=== PATIENT | male | born 1990 | race Caucasian/White ===

== ENCOUNTER 2017-11-21 10:30 | Emergency (ER) | payer MEDICAID ==
[2017-11-21 11:01] VITALS: BP 148/85
[2017-11-21] MEDS ORDERED: Ketorolac INJ* 60 MG/2 ML VIAL IM ONE (12:09)
[2017-11-21] MEDS ORDERED: Amoxicillin PO (*) 500 MG CAP PO ONE (12:10)
--- NOTE | 2017-11-21 12:17 | UC ---
Cardiac HPI - HPI Summary HPI Summary: right lower dental pain began yesterday - History of Current Complaint Chief Complaint: UCDentalProblem Stated Complaint: DENTAL PAIN Time Seen by Provider: 11/21/17 12:02 Hx Obtained From: Patient Onset/Duration: Sudden Onset, Lasting Days - 1 Timing: Constant Initial Severity: Severe Current Severity: Severe Pain Intensity: 10 Alleviating Factor(s): OTC Meds - Allergy/Home Medications Allergies/Adverse Reactions: Allergies Allergy/AdvReac Type Severity Reaction Status Date / Time No Known Allergies Allergy Verified 11/21/17 11:01 Home Medications: Home Medications Acetaminophen [Tylenol] 2 tab PO Q6HR PRN 11/21/17 [History Confirmed 11/21/17] Buprenorphine/Naloxone SL TAB* [Suboxone 8-2 mg SL TAB*] 1 tab PO DAILY [History Confirmed 11/21/17] Diphenhydramine HCl [Benadryl Allergy 25 MG CAP] 50 mg PO BEDTIME PRN 11/21/17 [ History Confirmed 11/21/17] Gabapentin CAP(*) [Neurontin 300 CAP(*)] 300 mg PO TID 11/21/17 [History Confirmed 11/21/17] Ibuprofen [Advil] 400 mg PO Q6HR PRN 11/21/17 [History Confirmed 11/21/17] Melatonin 5 mg PO BEDTIME 11/21/17 [History Confirmed 11/21/17] Nicotine PATCH 14 MG/24 HR* 1 patch TOPICAL DAILY 11/21/17 [History Confirmed ] traZODone TAB* [Desyrel TAB*] 50 mg PO BEDTIME 11/21/17 [History Confirmed 11/21] PMH/Surg Hx/FS Hx/Imm Hx Previously Healthy: No - 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 Psychological History: Anxiety - Surgical History Surgical History: None - Family History Known Family History: Positive: None - Social History Occupation: Unemployed Lives: Assisted Alcohol Use: None Substance Use Type: Other Substance Use Comment - Amount & Last Used: in recovery on Suboxone Smoking Status (MU): Never Smoked Tobacco Review of Systems Constitutional: Negative Skin: Negative Eyes: Negative ENT: Dental Pain Respiratory: Negative Cardiovascular: Negative Gastrointestinal: Negative Genitourinary: Negative Motor: Negative Neurovascular: Negative Musculoskeletal: Negative Neurological: Negative Psychological: Negative Is Patient Immunocompromised?: No All Other Systems Reviewed And Are Negative: Yes Physical Exam Triage Information Reviewed: Yes Appearance: Well-Appearing, Well-Nourished, Pain Distress Vital Signs: Initial Vital Signs Temp 98.4 F 11/21/17 10:58 Pulse 84 11/21/17 10:58 Resp 16 11/21/17 10:58 BP 148/85 11/21/17 10:58 Pulse Ox 98 11/21/17 10:58 Vital Signs Reviewed: Yes Eye Exam: Normal Eyes: Positive: Conjunctiva Clear ENT Exam: Normal ENT: Positive: Normal ENT inspection, Hearing grossly normal, Pharynx normal, Dental tenderness, Uvula midline. Negative: Nasal congestion, Tonsillar swelling, Trismus, Muffled voice, Hoarse voice, Sinus tenderness Dental Exam: Normal Dental: Positive: Percussion Tenderness @ - multiple, Gross Decay/Caries @ - multiple, Dental Fracture @ - multiple, Abscess @ - right lower gum Neck exam: Normal Neck: Positive: Supple, Nontender Respiratory Exam: Normal Respiratory: Positive: Chest non-tender, No respiratory distress, No accessory muscle use Cardiovascular Exam: Normal Cardiovascular: Positive: RRR, Pulses Normal, Brisk Capillary Refill Musculoskeletal Exam: Normal Musculoskeletal: Positive: Strength Intact, ROM Intact, No Edema Neurological Exam: Normal Neurological: Positive: Alert, Muscle Tone Normal Psychological Exam: Normal Skin Exam: Normal - Assessment/Plan Course Of Treatment: Amoxicillin Ibuprofen 800, Pt refused Toradol, follow with dentist JAY - Clinical Impression Provider Diagnoses: dental abscess right lower jaw with multiple caries, elevated blood pressure due to current medical situation Discharge - Discharge Plan Condition: Stable Disposition: HOME Prescriptions: Amoxicillin PO (*) [Amoxicillin 500 MG CAP*] 500 mg PO TID #30 cap Ibuprofen TAB* [Motrin TAB* 800 MG] 800 mg PO Q8H PRN #40 tab PRN Reason: Pain Patient Education Materials: Dental Abscess (ED), Toothache (ED) Referrals: Finn Barillas JR PA [Primary Care Provider] - Additional Instructions: Call for a dental appointment JAY-
== END 2017-11-21 12:37 | disposition home or self-care (01) ==
LOC: UCEAST 10:30
DX: K04.7 Periapical abscess without sinus (principal); F41.9 Anxiety disorder, unspecified; K02.9 Dental caries, unspecified; R03.0 Elevated blood-pressure reading, without diagnosis of hypertension
CPT/HCPCS: 99212; A9270-GY; G0463; J1885

== ENCOUNTER 2020-07-15 20:35 | Inpatient (IN) ==
[2020-07-15 21:12] LABS: ABS Monocytes 0.5 10^3/ul (0-0.8); ABS Neutrophils 2.9 10^3/ul (1.5-7.7); Eosinophil % 0.8 %; Hematocrit 43 % (42-52); Hemoglobin 14.3 g/dL (14.0-18.0); Lymphocyte % 36.6 %; Mean Corpuscular HGB Conc 34 g/dL (31-36); Mean Corpuscular Hemoglobin 29 pg (27-31); Mean Corpuscular Volume 86 fL (80-94); Mean Platelet Volume 7.2 fL (7.4-10.4); Platelet Count 256 10^3/uL (150-450); Red Blood Count 4.95 10^6 /uL (4.18-5.48); Red Cell Distribution Width 14 % (10-15); White Blood Count 5.5 10^3/uL (3.5-10.8)
[2020-07-15 21:30] LABS: ALT 26 U/L (7-52); AST 22 U/L (13-39); Albumin 4.6 g/dL (3.2-5.2); Albumin/Globulin Ratio 1.6 (1-3); Alkaline Phosphatase 90 U/L (34-104); Anion Gap 6 mmol/L (2-11); BUN/Creatinine Ratio 16.5 (8-20); Blood Urea Nitrogen 14 mg/dL (6-24); CO2 Carbon Dioxide 30 mmol/L (22-32); Chloride 102 mmol/L (101-111); EGFR African American 127.2 (>60); EGFR Non-African American 105.1 (>60); Globulin 2.8 g/dL (2-4); Glucose 85 mg/dL (70-100); Potassium 3.3 mmol/L (3.5-5.0); Sodium 138 mmol/L (135-145); Total Protein 7.4 g/dL (6.4-8.9)
[2020-07-15 22:23] LABS: Acetaminophen < 15 mcg/mL; Alcohol, S < 10 mg/dL (<10); Salicylate < 2.50 mg/dL (<30)
[2020-07-15 22:38] LABS: TSH Ultra Thyroid Stim Horm 0.62 mcIU/mL (0.34-5.60)
[2020-07-15 23:48] LABS: Urine Appearance Cloudy; Urine Bilirubin Negative (Negative); Urine Blood Negative (Negative); Urine Color Yellow; Urine Glucose Negative (Negative); Urine Ketones Negative (Negative); Urine Nitrite Negative (Negative); Urine Protein Negative (Negative); Urine Specific Gravity 1.025 (1.010-1.030); Urine Urobilinogen Negative (Negative)
[2020-07-16 00:10] LABS: Urine Benzodiazepine Screen None Detected (None Detect); Urine Cannabinoids Screen Presumptive Positive (None Detect); Urine Opiates Screen None Detected (None Detect)
[2020-07-16] MEDS ORDERED: Haloperidol 5 mg/ml SDV IV/IM 5 MG/ML AMP IM PRN (00:22)
[2020-07-16] MEDS ORDERED: LORazepam 2 mg VIAL 1 ml IM PRN (00:22)
[2020-07-16] MEDS ORDERED: diPHENhydraMINE IV 50 MG/ML 1 ml VIAL (BENADRYL) IM PRN (00:22)
[2020-07-16] MEDS: Nicotine GUM 2MG FRUIT FLAVOR PO PRN ×4 (00:22→21:27)
[2020-07-16] MEDS ORDERED: Al Hydrox/Mg Hydrox/Simet LIQ 30 ML UDC PO PRN (00:39)
[2020-07-16] MEDS: Buprenorp/Nalox 4-1 MG FILM SL FILM SCH ×2 (09:17→13:38)
[2020-07-16] MEDS: Nicotine PATCH 14 MG/24 HR PATCH TRANSDERM SCH (13:36)
[2020-07-16] MEDS: Vitamin THERAPEUTIC TAB PO SCH (13:38)
[2020-07-16] MEDS ORDERED: Buprenorp/Nalox 4-1 MG FILM SL FILM ONE (15:59)
[2020-07-16] MEDS: Buprenorp/Nalox 8-2 MG FILM SL FILM SCH (21:28)
[2020-07-17] MEDS: Buprenorp/Nalox 8-2 MG FILM SL FILM SCH (08:09)
[2020-07-17] MEDS: Vitamin THERAPEUTIC TAB PO SCH (08:09)
[2020-07-17] MEDS ORDERED: Buprenorp/Nalox 4-1 MG FILM SL FILM SCH (09:00)
[2020-07-17 09:05] LABS: HDL Cholesterol 46.6 mg/dL
[2020-07-17] MEDS: Nicotine PATCH 14 MG/24 HR PATCH TRANSDERM SCH (09:07)
[2020-07-17] MEDS: Nicotine GUM 2MG FRUIT FLAVOR PO PRN ×2 (09:21→13:11)
[2020-07-17 10:34] VITALS: BP 126/69
== END 2020-07-17 16:40 | disposition home or self-care (01) | DRG 755 ==
LOC: ED 20:35 → BSU 07-16 00:16
PROVIDERS: ADMIT Psychiatry & Neurology Psychiatry; ATTEND Psychiatry & Neurology Psychiatry